=== PATIENT | male | born 1990 | race Caucasian/White ===

== ENCOUNTER 2022-04-25 18:47 | Emergency (ER) | payer OTHER ==
[2022-04-25 19:04] VITALS: BP 144/84; PULSE 95; RESP 20; TEMP 98.2; BMI 26.9
== END 2022-04-25 19:50 | disposition home or self-care (01) ==
LOC: FER 18:47
DX: Z77.29 Contact with and (suspected) exposure to other hazardous substances (principal)
CPT/HCPCS: 99281-25

== ENCOUNTER 2023-10-15 03:44 | Emergency (ER) | payer OTHER ==
[2023-10-15 03:50] VITALS: BP 142/94; PULSE 85; RESP 17; TEMP 97.5; BMI 27.9
[2023-10-15] MEDS ORDERED: IBUPROFEN 600 MG TABLET (FP) PO ONE (04:16)
== END 2023-10-15 06:30 | disposition home or self-care (01) ==
LOC: FER 03:44
DX: S63.92XA Sprain of unspecified part of left wrist and hand, initial encounter (principal); M25.532 Pain in left wrist; M79.642 Pain in left hand; X50.9XXA Other and unspecified overexertion or strenuous movements or postures, initial encounter
CPT/HCPCS: 73090-TC-LT-FY; 73110-TC-LT-FY; 73130-TC-LT-FY; 99283-25

== ENCOUNTER 2024-03-04 02:53 | Emergency (ER) | payer OTHER ==
[2024-03-04 03:19] VITALS: BP 121/87; PULSE 77; RESP 18; TEMP 98; BMI 28.0
== END 2024-03-04 03:38 | disposition home or self-care (01) ==
LOC: FER 02:53
DX: S50.811A Abrasion of right forearm, initial encounter (principal); S50.812A Abrasion of left forearm, initial encounter; S60.511A Abrasion of right hand, initial encounter; S60.512A Abrasion of left hand, initial encounter; S80.811A Abrasion, right lower leg, initial encounter; W60.XXXA Contact with nonvenomous plant thorns and spines and sharp leaves, initial encounter; Y35.811A Legal intervention involving manhandling, law enforcement official injured, initial encounter
CPT/HCPCS: 99283-25

== ENCOUNTER 2024-05-20 06:38 | Emergency (ER) | payer OTHER ==
[2024-05-20 06:58] VITALS: BP 127/88; PULSE 80; RESP 16; TEMP 98.2; BMI 28.0
== END 2024-05-20 08:58 | disposition home or self-care (01) ==
LOC: FER 06:38
DX: M25.562 Pain in left knee (principal); Y35.811A Legal intervention involving manhandling, law enforcement official injured, initial encounter
CPT/HCPCS: 73560-TC-LT-FY; 99283-25

== ENCOUNTER 2024-07-15 06:29 | Emergency (ER) | payer OTHER ==
[2024-07-15 07:06] VITALS: BP 133/82; PULSE 70; RESP 20; TEMP 98.2; BMI 27.1
== END 2024-07-15 09:49 | disposition home or self-care (01) ==
LOC: FER 06:29
DX: R07.89 Other chest pain (principal); R05.9 Cough, unspecified; T59.3X3A Toxic effect of lacrimogenic gas, assault, initial encounter; Y35.811A Legal intervention involving manhandling, law enforcement official injured, initial encounter
CPT/HCPCS: 71045-TC-FY; 99283-25

== ENCOUNTER 2024-10-28 01:54 | Emergency (ER) | payer OTHER ==
[2024-10-28 02:01] VITALS: BP 145/90; PULSE 97; RESP 18; TEMP 97.9; BMI 27.8
[2024-10-28] MEDS: LIDOCAINE 5% TOPICAL PATCH TP ONE (02:56)
[2024-10-28] MEDS: ACETAMINOPHEN 500 MG TABLET (FP) PO ONE (02:57)
[2024-10-28] MEDS: IBUPROFEN 400 MG TABLET (FP) PO ONE (02:57)
[2024-10-28] MEDS ORDERED: LIDOCAINE PATCH REMOVAL MC SCH (22:00)
== END 2024-10-28 03:33 | disposition home or self-care (01) ==
LOC: JER 01:54
DX: M25.511 Pain in right shoulder (principal)
CPT/HCPCS: 73030-TC-RT-FY; 99283-25

== ENCOUNTER 2025-03-20 04:34 | Emergency (ER) | payer OTHER ==
[2025-03-20 04:46] VITALS: RESP 18; TEMP 99.3; BMI 27.8
[2025-03-20 06:41] VITALS: BP 127/84; PULSE 79
== END 2025-03-20 06:43 | disposition home or self-care (01) ==
LOC: JER 04:34
DX: S00.12XA Contusion of left eyelid and periocular area, initial encounter (principal); M54.2 Cervicalgia; M54.50 Low back pain, unspecified; M62.830 Muscle spasm of back; Y35.811A Legal intervention involving manhandling, law enforcement official injured, initial encounter
CPT/HCPCS: 70450-TC; 70486-TC; 72125-TC; 99284-25